=== PATIENT | male | born 1945 | race Caucasian/White ===

== ENCOUNTER 2017-03-15 19:35 | Observation (INO) | payer BC, MEDICARE ==
[~2017-03-15] VITALS: Ht 180.3 cm; Wt 89.6 kg
[~2017-03-15 19:35] MED LIST: ACTOS30 MG PO; AEROECLIPSE NEB1 DEV; ALBUTEROL2 PUFFS/17 IN; ANTIVERT GENERI25 MG PO; ASPIRIN EC81 MG PO; CARVEDILOL 1212.5 MG PO; CARVEDILOL6.25 MG PO; CHEWABLE ASPIRI81 MG PO; CLOPIDOGREL75 MG PO; COREG 6.25MG6.25 MG PO; DILTIAZEM ER 1120 MG PO; DILTIAZEM ER 3300 MG PO; DULERA1 ARO IH; HYCODAN 5MG. TAB5 MG PO; IMDUR 60MG. TAB60 MG PO; IPRATROPIUM BROM3 M1 IH; K + POTASSIUM20 MEQ PO; K-DUR 20MEQ TA20 MEQ PO; LASIX 20MG. TAB20 MG PO; LIPITOR10 MG PO; LORTAB 5/500 501 TAB PO; LOTREL 10 MG-201 CAP PO; METFORMIN 500M500 MG PO; METFORMIN HCL1000 MG PO; METFORMIN1000 MG PO; METRONIDAZOLE500 MG PO; MICRO-K 1010 MEQ PO; MUCINEX ER600 MG PO; NICOTINE PATCH;21 MG TD; OMEPRAZOLE DR20 MG PO; PHENERGAN 25MG.25 M1 PO; POTASSIUM CHLO10 ME3 PO; SYMBICORT1 AER IH; TOPAMAX 25 MG T25 MG PO; ZITHROMAX 250M250 MG PO
[2017-03-15 19:42] VITALS: BP 146/92
[2017-03-15 19:48] LABS: URINE BLOOD NEGATIVE (NEG)
[2017-03-15 19:51] LABS: URINE BILIRUBIN - DIPSTICK 1+ (NEG)
[2017-03-15] MEDS ORDERED: LEVOFLOXACIN 5500 M1 PO (19:51)
[2017-03-15 20:00] LABS: LYMPH # 1.7 K/mm3 (0.7-4.5); LYMPH % 21.4 % (10-50)
[2017-03-15 20:05] LABS: HEMOGLOBIN 16.7 g/dL (14.1-18.0)
--- OUTSIDE RECORDS SUMMARY | 2017-03-15 20:10 | External Medical Summary Rpt ---
Author Author , Organization [employer] Address Unknown Phone Unavailable Purpose Continuity of Care Document - through 2016
--- OUTSIDE RECORDS SUMMARY | 2017-03-15 20:10 | External Medical Summary Rpt ---
Author Author [employer] Organization [employer] Address Unknown Phone Unavailable Purpose Continuity of Care Document - through 2016
--- OUTSIDE RECORDS SUMMARY | 2017-03-15 20:10 | External Medical Summary Rpt ---
Author Author ROSE Muniz, [employer] Organization [employer] Address Unknown Phone Unavailable
[2017-03-15 20:23] LABS: BUN 17 mg/dL (7-18); GFR (ESTIMATED) 54 ML/MIN (>60)
--- NOTE | 2017-03-15 20:27 | Emergency Room Report ---
History of Present Illness Time Seen by 2007 Presenting Problem in Triage Pt arrived:Walked Presenting Problem:dizziness, nausea/vomiting, right abdomen and flank pain. pt has hida scan scheduled for tomorrow. Onset of symptoms date/time:/ or onset unknown for:MEDICAL HX UNKNOWN Treatment Prior to Arrival: AQUARIST Provided by: Sepsis Risk Assessment: Temp: 97.6 B/P: 146/92 MAP: 110 Pulse: 84 Resp: 20 Recent fever? N Clinical Suspician of Infection? N Mental Status: 1 - Regular (Normal Baseline) Sepsis Risk:Low Sepsis Risk Have you (or family members/close friends) recently traveled outside the [place]? N If Yes, where/when: Have you had exposure to infectious disease within the past month? TB? Other? Specify: Source patient, RN notes reviewed, family, RN/MD Exam Limitations no limitations Comment This is a 72-year-old gentleman arriving to the emergency room together with his daughter, complaining with RIGHT upper quadrant abdominal pain , since 10:30 PM, associated with multiple episodes of nausea or vomiting. Patient has eaten a greasy meal earlier in the afternoon, probably triggering current episode. He has been having RIGHT upper quadrant abdominal pain, off-and -on, for the past 2 weeks. Patient has seen Dr. Diaz, in the office, who has previously obtained a gallbladder ultrasound, which showed no gallstones. He is scheduled to have a HIDA scan tomorrow, at this facility. Patient denies any recent travel or exposure to sick contacts otherwise. ALLERGIES Coded Allergies: No Known Allergies (03/15/17) Home Medications Active Scripts CLOPIDOGREL BISULFATE (Clopidogrel 75MG) 75 MG PO DAILY #30 Ref 6 Prov: 12/12/11 Guaifenesin (Mucinex) 1,200 MG PO BID #60 Ref 5 Prov: 01/16/17 NEBULIZER (Aeroeclipse II Nebulizer) 1 EACH NA UD #1 Prov: 01/16/17 ALBUTEROL-IPRATROPIUM (Iprat-Albut 0.5-3(2.5) MG/3 Ml) 3 ML IH BIDP PRN COPD #60 NEB Ref 4 Prov: 01/16/17 Carvedilol (Carvedilol 12.5MG) 12.5 MG PO BID #60 Ref 2 Prov: 12/31/11 Reported Medications ASPIRIN ENTERIC COATED (Aspirin EC) 81 MG PO DAILY Furosemide (Lasix 20MG) 20 MG PO DAILY MOMETASONE/FORMOTEROL (Dulera 100 Mcg/5 Mcg Inhaler) 1 PUFF IH BID Insulin Glargine,Hum.rec.anlog (Basaglar Kwikpen U-100) 12 SQ QHS ISOSORBIDE MONONITRATE (Isosorbide Mononitrate ER) 120 MG PO QHS Atorvastatin Calcium (Lipitor 10MG) 20 MG PO QHS Amlodipine Besylate/Benazepr (Lotrel 10 Mg-20 Mg) 1 CAP PO QHS Omeprazole (Omeprazole Dr) 40 MG PO DAILY Levofloxacin (Levofloxacin 500MG TAB) 500 MG PO DAILY #10 History Medical History General CAD? Yes Angina: No HI: No Hypertension? Yes Hyperlipidemia? Yes CHF? No DVT? No PE? No COPD? Yes Asthma? No Anemia? No GERD? Yes Gastric ulcers? No GI Bleed? No Hernia? No Thyroid Problems? No Hypothyroidism? No CVA? No Seizures? No Diabetes? Yes Insulin Dependent: Yes Insulin Pump: No Home FSBS? Yes Renal Insuffiency? No End Stage Renal Disease? No UTI? No Stones? No BPH? No GB Disease: No Nephritic Syndrome? No Asplenia? No Hepatitis? No Sickle Cell Disease? No Arthritis? Yes Migraines? No Cataracts? No Glaucoma? No MRSA? No HIV? No TB? No Anxiety? No Depression? No Cancer? No More? No Immunization Hx DT/Tetanus 5-10 Years Ago Flu 2015-17FSN Pneumonia Received In Past Surgical Hx Previous Surgery?Y Appendix BUNIONECTOMY CARDIAC STENT Family History Family Hx Diabetes No CAD Yes Hypertension Yes Hyperlipidemia No Cancer Yes TB No Social History Smoking Hx Smoker: Current Every Day Smoker Tobacco: Yes Type Cigarettes Packs/day 1 1/2 - 2 Packs Alcohol Alcohol: No Review of Systems All Other Systems Reviewed and Negative Gastrointestinal see HPI, abdominal pain, denies diarrhea, nausea, vomiting Physical Exam Vital Signs Vital Signs Date Time Temp Pulse Resp B/P Pulse O2 O2 Flow FiO2 Ox Delivery Rate 03/15 2207 98.7 85 147/83 93 ROOM AIR 03/15 2155 97.6 45 142/78 94 03/15 2148 45 20 142/78 94 03/15 2112 68 20 130/78 94 03/15 1942 97.6 84 20 146/92 98 General Appearance normal appearance, WD/WN, moderate distress Neck normal inspection, non-tender, supple, full range of motion Respiratory Status Yes: trachea midline, chest symmetrical, non tender chest. No: respiratory distress. Lung Sounds bilateral: normal breath sounds, lungs clear. 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 No Comment Patient continues to remain symptomatic, although medically stable. He has had additional episodes of nausea and vomiting, as well as recurrent abdominal pain, despite the IV hydration, IV pain medications, IV antiemetics. Decision made to hospitalize patient for observation, at this time. 21:30-case discussed with Dr. Cronin, covering for Dr. Diaz, advised of patient's presentation, findings, vital signs, ED course. Dr. Cronin agreeable with admission, plan is to keep patient nothing by mouth, and conducted the HIDA scan in the morning. Care transferred to Dr. Cronin at this time. I will write temporary bridge admission orders, per hospital protocol. Upon patient's arrival to the floor, deputy united [place] marshal will contact Dr. Cronin in order to obtain full inpatient admission orders. Results/Orders Laboratory Tests 03/15/171944: Sodium 140, Potassium 3.4 L, Chloride 103, Carbon Dioxide 27, BUN 17, Creatinine 1.3, Estimated Creat Clear 66, Estimated GFR (MDRD) 54, Glucose 138 H, Calcium 7.7 L, Total Bilirubin 0.6, AST 16, ALT 27, Alkaline Phosphatase 63, Creatine Kinase 56, CK-MB (CK-2) Rel Index 2.3, CK and CKMB Interp 1.3, Troponin I < 0.02, Total Protein 7.6, Albumin 3.5, Globulin 4.1 H, Albumin/Globulin Ratio 0.9 L, WBC 7.9, RBC 5.22, Hgb 16.7, Hct 50.7, MCV 97.2, RDW 13.3, Plt Count 267, MPV 6.0 L, Gran % 74.3, Gran # 5.8, Lymphocytes % 21.4, Monocytes % 3.7, Eosinophils % 0.3, Basophils % 0.3, Lymphocytes # 1.7, Monocytes # 0.3, Eosinophils # 0.0, Basophils # 0.0, PUBS MCHC 32.8, MCH 31.9 H, Urine Color DK YELLOW, Urine Appearance CLEAR, Urine pH 5.5, Ur Specific [place] 1.025, Urine Protein NEGATIVE, Urine Ketones NEGATIVE, Urine Blood NEGATIVE, Urine Nitrate NEGATIVE, Urine Bilirubin 1+ H, Urine Urobilinogen 0.2, Ur Leukocyte Esterase NEGATIVE, Urine WBC 5-10, Urine Bacteria 1+, Hyaline Casts OCC, Urine Mucus 3+, Urine Glucose NEGATIVE Current Medication Orders Sig/Danelle Start time Last Medication Dose Route Stop Time Status Admin Morphine Sulfate 4 MG ONCE ONE 03/15 2145 DC IV 03/15 2146 Morphine Sulfate 4 MG Q4HP PRN 03/15 2145 UNV IV Ondansetron HCl 4 MG Q6HP PRN 03/15 2145 UNV IV Promethazine HCl 12.5 MG Q4HP PRN 03/15 2145 UNV IV Sodium Chloride 25 ML PRN PRN 03/15 2145 UNV IV Sodium Chloride 1,000 ML .Q8H 03/15 2145 UNV 03/15 IV 2258 Ondansetron HCl 4 MG ONCE ONE 03/15 2130 DC 03/15 IV 03/15 Ondansetron HCl 0 .STK-MED ONE 03/15 2130 DC .ROUTE Sodium Chloride 10 ML PRN PRN 03/15 2000 AC IV 03/16 1955 Orders Procedure Date/time Status DIET-NOTHING BY MOUTH 03/16 B Active NUC HEPATOBILIARY (CCK) 03/16 800 Active Decision to admit 03/[address] ABD/PELVIS REQ 03/15 2001 Complete IV SALINE LOCK 03/15 1955 Active ELECTROCARDIOGRAM REQUEST 03/15 1952 Active COMPLETE METABOLIC PANEL 03/15 1952 Complete CBC WITH AUTO DIFF 03/15 1952 Complete CARDIAC ENZYMES 03/15 1952 Complete URINALYSIS/COMPLETE 03/15 1941 Complete ADMIT PATIENT 03/15 UNK Active 12 LEAD EKG-GORDY (INITIAL) 03/15 UNK Active VITAL SIGNS 03/15 UNK Active RN DOCUMENTATION SPECIALIST 03/15 UNK Active POM NURSE SILAS HOSE ORDER 03/15 UNK Active CODE STATUS 03/15 UNK Active PATIENT ACTIVITY ORDER 03/15 UNK Active CM/EKG CM/EKG 1 Monitor Rhythm Normal Sinus Rhythm Rate 85 Ectopy No Comments No acute ischemic changes EKG rate, NSR, rhythm, no evid. of ischemic chgs, no ectopy, normal QRS, normal [place], no EKG for comparison, non-spec. ST/Twave chgs, ST elevation, ST depression, LBBB, RBBB, ectopy, abnormal Q waves CM/EKG 2 Monitor Rhythm Normal Sinus Rhythm Rate 78 Ectopy No Comments No acute ischemic changes EKG rate, NSR, rhythm, no evid. of ischemic chgs, no ectopy, normal QRS, normal [place], no EKG for comparison, non-spec. ST/Twave chgs, ST elevation, ST depression, LBBB, RBBB, ectopy, abnormal Q waves XRAY/CT/US XRAY/CT/US CT abdomen, pelvis CT interpretation by discussed w/radiologist CT Results see radiologist's report Departure Departure Time of Disposition 2129 Disposition Still a Patient Clinical Impression Primary Impression: Intractable nausea and vomiting Qualifiers: Vomiting type: unspecified Qualified Code: R11.2 - Nausea with vomiting, unspecified Secondary Impressions: RUQ abdominal pain Condition STABLE Referrals Nicky Diaz MD (Family) ED Critical Care Critical Care No at 0614
--- NOTE | 2017-03-15 20:38 | RADIOLOGY REPORT PS360 ---
CHEST(2 VIEWS-NOT PORTABLE) COMPARISON: PA and lateral chest 01/14/2017 HISTORY: Generalized weakness TECHNIQUE: PA and lateral chest FINDINGS: The lung juarez are well expanded and appear clear of infiltrate. Cardiac size is normal and the vascularity is normal and is no pleural fluid. There are mild degenerative changes of both shoulders. IMPRESSION: Nonacute chest findings
--- NOTE | 2017-03-15 20:45 | RADIOLOGY REPORT PS360 ---
CT ABD PELVIS W/O CONTRAST COMPARISON: CT scan the abdomen 12/27/2011 HISTORY: Nausea vomiting and diarrhea for 2 weeks TECHNIQUE: Multiaxial scans obtained from the hemidiaphragms the pelvic floor and were performed without IV or oral contrast. Sagittal and coronal reformats were evaluated as well. FINDINGS: Scans of the lower chest show show clear lung juarez. There is mild generalized cardio megaly. The liver spleen stomach pancreas and gallbladder appear normal. There is a hypodense lesion of the right adrenal gland likely a small cyst or adenoma in view of the CT number. The left adrenal gland is normal. The kidneys are normal in size and there are no calculi and is no obstructive uropathy of either kidney. Small bowel is normal. I do not definitely identify the appendix but no pericecal inflammatory changes. There is moderate stool in the ascending and transverse and descending colon. There is mild diverticulosis of the sigmoid colon with no evidence of diverticulitis. The urinary bladder is partially decompressed, the prostate is normal. There is a small right inguinal hernia containing fat only. IMPRESSION: Mild diverticulosis of sigmoid colon without diverticulitis, no other significant abnormality noted.
[2017-03-15 22:07] VITALS: BP 147/83
[2017-03-15 22:19] VITALS: BP 147/83
[2017-03-15] MEDS ORDERED: BASAGLAR K100 UNIT/1 SQ (22:49)
[2017-03-16 04:39] VITALS: BP 138/70
[2017-03-16 06:53] LABS: LYMPH # 2.1 K/mm3 (0.7-4.5); LYMPH % 33.5 % (10-50)
[2017-03-16 07:00] LABS: HEMOGLOBIN 14.6 g/dL (14.1-18.0)
[2017-03-16 08:00] VITALS: BP 107/69
[2017-03-16 09:00] VITALS: BP 128/68
--- NOTE | 2017-03-16 09:10 | PHARMACY CLINIC NOTE ---
Patient Demographics Patient Demographics Admission date: 03/15/17 Date: 03/16/17 Time: 09 Allergies Coded Allergies: No Known Allergies (03/15/17) HEIGHT- FT: 5 IN: 11.00 K.557 VTE General Information Labs: Laboratory Tests 03/16 1945 Hematology Hgb (14.1 - 18.0 g/dL) 14.6 16.7 Hct (42.0 - 52.0 %) 45.5 50.7 Plt Count (142 - 424 K/mm3) 219 267 Disclaimer The following section includes nursing documentation that has been pulled in for pharmacy review. Patient's VTE score: 3 Patient's VTE Risk: LOW RISK Clinical trial participant? No VTE prophylaxis NQF [id number] VTE prophylaxis ordered? Yes Type of prophylaxis/treatment: SILAS at 0909
--- NOTE | 2017-03-16 09:39 | HISTORY AND PHYSICAL REPORT ---
History and Physical (FCA) Date of admission: 03/15/17 Chief complaint: abdominal pain with vomiting History: History of Present Illness: Mr. Faustin is a 72 year old male with a history of Type2 DM, CAD, and hyperlipidemia who presented to [facility] ER yesterday after experiencing intractable vomiting associated with 2 weeks of abdominal pain. Patient states he has been unable to eat for 2 weeks with about a 16# weight loss. The vomiting started yesterday; bowels have been moving as usual. US had been scheduled for today on an OP basis. Evaluation in the ER revealed a normal CT of the abdomen. He received pain and antinausea meds as well as IV fluids without improvement. Thus he was admitted. This AM he still does not feel very well. He is NPO for the US. He continues to be nauseated but is not vomiting. His abdomen is sore. Past Medical History: Medical History: CAD? Yes Angina: No MT: No Hypertension? Yes Hyperlipidemia? Yes CHF? No DVT? No PE? No COPD? Yes Asthma? No Anemia? No GERD? Yes Gastric ulcers? No GI Bleed? No Hernia? No Thyroid Problems? No Hypothyroidism? No CVA? No Seizures? No Diabetes? Yes Insulin Dependent: Yes Insulin Pump: No Home FSBS? Yes Renal Insuffiency? No UTI? No Stones? No BPH? No GB Disease: No Nephritic Syndrome? No Asplenia? No Hepatitis? No Sickle Cell Disease? No Arthritis? Yes Migraines? No Cataracts? No Glaucoma? No MRSA? No HIV? No TB? No Anxiety? No Depression? No Cancer? No More? No Surgical history: Previous Surgery?Y Appendix BUNIONECTOMY CARDIAC STENT Medications: Active Scripts CLOPIDOGREL BISULFATE (Clopidogrel 75MG) 75 MG PO DAILY #30 Ref 6 Prov: 12/12/11 NEBULIZER (Aeroeclipse II Nebulizer) 1 EACH NA UD #1 Prov: 01/16/17 Carvedilol (Carvedilol 12.5MG) 12.5 MG PO BID #60 Ref 2 Prov: 12/31/11 Discontinued Scripts Guaifenesin (Mucinex) 1,200 MG PO BID #60 Ref 5 Prov: 01/16/17 DC: 03/16/17 1212 ALBUTEROL-IPRATROPIUM (Iprat-Albut 0.5-3(2.5) MG/3 Ml) 3 ML IH BIDP PRN COPD #60 NEB Ref 4 Prov: 01/16/17 DC: 03/16/17 1212 Reported Medications ISOSORBIDE MONONITRATE (Isosorbide Mononitrate ER) 120 MG PO QHS Topiramate (Topamax) 50 MG PO BID ASPIRIN ENTERIC COATED (Aspirin EC) 81 MG PO DAILY Furosemide (Lasix 20MG) 20 MG PO DAILY MOMETASONE/FORMOTEROL (Dulera 100 Mcg/5 Mcg Inhaler) 1 PUFF IH BID Insulin Glargine,Hum.rec.anlog (Basaglar Kwikpen U-100) 12 SQ QHS Atorvastatin Calcium (Lipitor 10MG) 20 MG PO QHS Amlodipine Besylate/Benazepr (Lotrel 10 Mg-20 Mg) 1 CAP PO QHS Omeprazole (Omeprazole Dr) 40 MG PO DAILY Levofloxacin (Levofloxacin 500MG TAB) 500 MG PO DAILY #10 Allergies: Coded Allergies: No Known Allergies (03/15/17) Family History: Family history: Postive for: CAD, HTN. Social History: Smoking Hx Tobacco: Yes Smoker: Current Every Day Smoker Type: Cigarettes Packs/day: 1 1/2 - 2 Packs Are you exposed to second hand Yes Alcohol: Alcohol: No Hx of Drug Use: Drug Use? No Review of Systems: ENT No: mouth pain, sore throat. Cardiovascular No: chest pain, edema, palpitations. Respiratory Positive for: productive cough (sputum). No: shortness of air. GI Positive for: abdominal pain, anorexia, nausea, vomitting. No: GERD, constipation, diarrhea, hematemeis, hematochezia, melena. (male) No: hematuria. Musculoskeletal No: joint pain. Physical Exam: Vital signs: 1ST Vital Signs Result Date Time Pulse Ox 98 03/15 1942 B/P 146/92 03/15 1942 Temp 97.6 03/15 1942 Pulse 84 03/15 1942 Resp 20 03/15 1942 O2 Delivery ROOM AIR 03/15 2207 Exam: General appearance: normal appearance, alert, no acute distress Eyes: anicteric, pupils reactive to light ENT: mucous membranes moist, pharynx normal Neck: no carotid bruit, supple, lymphadenopathy (absent), thyroid (normal) Cardiovascular: regular rate & rhythm Respiratory: coarse expiratory wheeze ABD: non-distended, soft, generaluized soreness with palpation Extremities: no peripheral edema, no calf tenderness Neuro: alert, oriented Lab data: Labs: Laboratory Tests 03/16/17 0625: Sodium 142, Potassium 3.5, Chloride 106, Carbon Dioxide 29, BUN 19 H, Creatinine 1.3, Estimated Creat Clear 64, Estimated GFR (MDRD) 54, Glucose 90, Calcium 7.2 L, Total Bilirubin 0.5, AST 14 L, ALT 23, Alkaline Phosphatase 51, Total Protein 6.3 L, Albumin 2.9 L, Globulin 3.4 H, Albumin/Globulin Ratio 0.9 L, Amylase 30, Lipase 79, WBC 6.3, RBC 4.68, Hgb 14.6, Hct 45.5, MCV 97.2, RDW 13.4, Plt Count 219, MPV 6.0 L, Gran % 61.0, Gran # 3.8, Lymphocytes % 33.5 , Monocytes % 5.0, Eosinophils % 0.3, Basophils % 0.2, Lymphocytes # 2.1, Monocytes # 0.3, Eosinophils # 0.0, Basophils # 0.0, PUBS MCHC 32.1, MCH 31.2 03/15/17 1945: Sodium 140, Potassium 3.4 L, Chloride 103, Carbon Dioxide 27, BUN 17, Creatinine 1.3, Estimated Creat Clear 66, Estimated GFR (MDRD) 54, Glucose 138 H, Calcium 7.7 L, Total Bilirubin 0.6, AST 16, ALT 27, Alkaline Phosphatase 63, Creatine Kinase 56, CK-MB (CK-2) Rel Index 2.3, CK and CKMB Interp 1.3, Troponin I < 0.02, Total Protein 7.6, Albumin 3.5, Globulin 4.1 H, Albumin/Globulin Ratio 0.9 L, WBC 7.9, RBC 5.22, Hgb 16.7, Hct 50.7, MCV 97.2, RDW 13.3, Plt Count 267, MPV 6.0 L, Gran % 74.3, Gran # 5.8, Lymphocytes % 21.4, Monocytes % 3.7, Eosinophils % 0.3, Basophils % 0.3, Lymphocytes # 1.7, Monocytes # 0.3, Eosinophils # 0.0, Basophils # 0.0, PUBS MCHC 32.8, MCH 31.9 H, Urine Color DK YELLOW, Urine Appearance CLEAR, Urine pH 5.5, Ur Specific [place] 1.025, Urine Protein NEGATIVE, Urine Ketones NEGATIVE, Urine Blood NEGATIVE, Urine Nitrate NEGATIVE, Urine Bilirubin 1+ H, Urine Urobilinogen 0.2, Ur Leukocyte Esterase NEGATIVE, Urine WBC 5-10, Urine Bacteria 1+, Hyaline Casts OCC, Urine Mucus 3+, Urine Glucose NEGATIVE Radiology results: Results: 03/15/17 CXR IMPRESSION: 1. Mild splenomegaly. 2. Otherwise negative CT abdomen and pelvis with no acute intra-abdominal or pelvic pathology apparent 3. No significant change from 05/23/2014 03/15/17 CT of abdomen/pelvis IMPRESSION: Mild diverticulosis of sigmoid colon without diverticulitis, no other significant abnormality noted. Diagnosis(es): 1. RUQ abdominal pain 2. Intractable nausea and vomiting 3. Bronchitis 4. Diabetes type 2, controlled Plan: FOR HIDA scan this AM; nausea and pain control; IVF (Ana Cristina Ervin APRN) Diagnosis(es): 1. RUQ abdominal pain 2. Intractable nausea and vomiting 3. Bronchitis 4. Diabetes type 2, controlled 5. History of ASCVD Plan: Patient seen and examined this morning. He has had no vomiting since arriving to the ER last night. He still complains of some right upper quadrant pain. He has had no change in his bowels. He is scheduled actually for a HIDA scan. He previously had an essentially normal gallbladder ultrasound as an outpatient. We will proceed accordingly. (Lili Cronin MD) at 1214 at 2011
[2017-03-16] MEDS ORDERED: TOPAMAX50 MG PO (12:13)
--- NOTE | 2017-03-16 13:52 | RADIOLOGY REPORT PS360 ---
NUC HEPATOBILIARY (CCK) HISTORY: RUQ abdominal pain, nausea, vomiting ORDERING PHYSICIAN: Lili Cronin MD PATIENT AGE: 72 years COMPARISON: None DOSE: 8.8 mCi technetium Choletec. 1.9 mcg of CCK. No pain was reported with CCK infusion FINDINGS: Homogeneous activity is present within the hepatic parenchyma. Activity is present in the gallbladder by 10 minutes. Activity is present in the small bowel by 10 minutes. The gallbladder ejection fraction is calculated to be 92%, within normal limits The patient did not report pain or other symptoms during CCK infusion. IMPRESSION: Unremarkable hepatobiliary scan and gallbladder ejection fraction. No evidence of common or cystic duct obstruction with normal gallbladder ejection fraction
[2017-03-16 16:00] VITALS: BP 123/72
[2017-03-16 20:20] VITALS: BP 128/68
[2017-03-17 04:35] VITALS: BP 90/54
[2017-03-17 08:30] VITALS: BP 111/65
[2017-03-17 08:31] VITALS: BP 90/54
--- NOTE | 2017-03-17 08:57 | ACUTE CARE PROGRESS NOTE (QUA) ---
Progress Notes Subjective Date 03/17/17 Time 0745 Note Feeling better; was able to eat breakfast this AM; denies nausea and has not vomited; normal stools; voiding QS Objective Findings Laboratory Tests 03/17/17 0633: POC Glucose 84 03/16/17 2131: POC Glucose 154 H 03/16/17 1704: POC Glucose 90 Vital Signs Date Time Temp Pulse Resp B/P Pulse O2 O2 Flow FiO2 Ox Delivery Rate 03/17 831 98.9 70 20 90/54 93 03/17 0830 97.7 81 18 111/65 92 ROOM AIR 03/17 0435 98.9 70 20 90/54 93 ROOM AIR 03/16 2140 97.5 73 20 128/68 94 03/16 2020 97.5 73 20 128/68 94 ROOM AIR 03/16 1600 98.0 76 20 123/72 95 ROOM AIR 03/16 0900 97.5 73 20 128/68 94 Current Medications Insulin Human [rDNA origin] 0 .STK-MED ONE SC (DC) Ondansetron HCl 0 .STK-MED ONE .ROUTE (DC) Isosorbide Mononitrate 120 MG QHS PO Fluticasone/Salmeterol 1 PUFFS Q12H6 IN Diagnostic Test (Pha) 1 EACH W/MEALS&HS FS Insulin Human [rDNA origin] SEE ADMIN CRITERIA FOR LOW INTENSITY SS W/MEALS&HS SC Sodium Chloride 10 ML PRN PRN IV Pantoprazole Sodium 40 MG BID IV Carvedilol 12.5 MG BID PO Miscellaneous 1 DOSE ONCE ONE IV (DC) Sodium Chloride 10 ML ONCE ONE IV (DC) Sodium Chloride 10 ML ONCE ONE IV (DC) Sincalide 1.9 MCG ONCE ONE IV (DC) Sodium Chloride 50 ML Morphine Sulfate 4 MG Q4HP PRN IV Ondansetron HCl 4 MG Q6HP PRN IV Promethazine HCl 12.5 MG Q4HP PRN IV Sodium Chloride 25 ML PRN PRN IV Sodium Chloride 1,000 ML .Q8H IV Sodium Chloride 10 ML PRN PRN IV (DC) 03/16 1500 03/16 2300 03/17 0700 Intake Total 0 900 703 Output Total Balance 0 900 703 Intake, IV 703 Intake, Oral 0 900 Patient 197 lb Weight Last VS-Temp:98.9 B/P:90/54 Pulse:70 Resp:20 SaO2:93 ROOM AIR Last weight lbs:197 oz:7 K.557 Method:Bed Scales Exam General appearance: alert, active, no acute distress, sitting on bedside Cardiovascular: regular rate & rhythm Respiratory: clear to auscultation (bilat anterior and posterior) ABD: non-distended, soft, bowel sounds present, point tenderness RLQ Extremities: no peripheral edema, no calf tenderness Neuro: alert, oriented Assessment/Plan Problem List 1. RUQ abdominal pain 2. Intractable nausea and vomiting 3. Bronchitis 4. Diabetes type 2, controlled 5. History of ASCVD Plan: Will discharge to home with GI referral This inpt stay is expected to cross 2 MNs from start of care No (Ana Cristina Ervin APRN) Subjective Date 03/17/17 Time 0835 Assessment/Plan Problem List 1. RUQ abdominal pain 2. Intractable nausea and vomiting 3. Bronchitis 4. Diabetes type 2, controlled 5. History of ASCVD Plan: Pt seen and examined. Clinically improved but stiil no definitive explanation for his symptoms. He is stable for discharge and will arrange outpt GI f/u. (Lili Cronin MD) at 0856 at 1423
[2017-03-17] MEDS ORDERED: ZOFRAN4 MG PO (08:59)
== END 2017-03-17 09:55 | disposition home or self-care (01) ==
LOC: ER 19:35 → 2ND 21:29
PROVIDERS: Emergency Medicine; Family Medicine
DX: R11.2 Nausea with vomiting, unspecified (principal); R10.11 Right upper quadrant pain; J40 Bronchitis, not specified as acute or chronic; E11.9 Type 2 diabetes mellitus without complications
CPT/HCPCS: A9537; G0378; J2405; J2805

== ENCOUNTER 2017-03-22 21:57 | Observation (INO) | payer BC, MEDICARE ==
[~2017-03-22] VITALS: Ht 180.3 cm; Wt 85.1 kg
[~2017-03-22 21:57] MED LIST changes: +ATORVASTATIN CA20 MG PO; +BASAGLAR K100 UNIT/1 SQ; +LEVOFLOXACIN 5500 M1 PO; -LIPITOR10 MG PO; -OMEPRAZOLE DR20 MG PO; +OMEPRAZOLE40 MG PO; +TOPAMAX50 MG PO; +ZOFRAN4 MG PO
[2017-03-22 21:58] VITALS: BP 153/99
--- OUTSIDE RECORDS SUMMARY | 2017-03-22 22:06 | External Medical Summary Rpt ---
Author Author , Organization [employer] Address Unknown Phone Unavailable Purpose Continuity of Care Document - through 2016 Problems Code Diagnosis DOS Provider Status R10.11 RIGHT UPPER QUADRANT PAIN R11.2 NAUSEA WITH VOMITING, UNSPECIFIED
[2017-03-22] MEDS ORDERED: GLIMEPIRIDE 4MG4 MG PO (22:07)
--- OUTSIDE RECORDS SUMMARY | 2017-03-22 22:08 | External Medical Summary Rpt ---
Demographics Preferred Language Belarusian Marital Status Unknown Congregation Affiliation Unknown Race Unknown Ethnic Group Unknown Author Author , Organization [employer] Address Unknown Phone Unavailable Purpose Continuity of Care Document - through 2016 Immunization Unable to retrieve immunization data due to connection failure with Immunization Registry. Please try again later.
--- OUTSIDE RECORDS SUMMARY | 2017-03-22 22:08 | External Medical Summary Rpt ---
Demographics Preferred Language Tamaz[place] Marital Status Unknown Alevism Affiliation Unknown Race Unknown Ethnic Group Unknown Author Author , Organization [employer] Address Unknown Phone Unavailable Purpose Continuity of Care Document - through 2016 Immunization Unable to retrieve immunization data due to connection failure with Immunization Registry. Please try again later.
[2017-03-22 22:40] LABS: HEMOGLOBIN 14.7 g/dL (14.1-18.0); LYMPH # 1.9 K/mm3 (0.7-4.5)
--- NOTE | 2017-03-22 22:47 | Emergency Room Report ---
History of Present Illness Time Seen by 2204 Presenting Problem in Triage Pt arrived:Wheelchair Presenting Problem:PT C/O LEFT ANTERIOR CHEST PAIN THAT "EARLIER TODAY WAS LIKE AN ACHE IN MY LEFT ARM, BUT IT'S NOT THAT BAD NOW." PT DESCRIBES CHEST PAIN SHARP PAIN THAT'S CONSTANT, PT RPTS PAIN STARTED AT 1100 THIS MORNING WHEN HE WAS AT HIS HOME DOING HIS NORMAL ACTIVITIES. PT ALSO C/O SOB AND FEELING CLAMMY TODAY. PT WAS RECENTLY ADMITTED TO [facility] 5 DAYS AGO, WAS ADMITTED FOR ABDOMINAL PAIN AND VOMITING. PT DID HAVE A HIDASCAN DONE ON THURSDAY, DR MARY TOLD THE SCAN WAS OK, BUT "DOES NOT EXPLAIN THE ABDOMINAL PAIN THAT HE'S HAD FOR A MONTH AND HE HASN'T BEEN ABLE TO EAT SO THEY REFERRED HIM TO A GASTROLOGIST. 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 N Clinical Suspician of Infection? N Mental Status: 1 - Regular (Normal Baseline) Sepsis Risk:Low Sepsis Risk Have you (or family members/close friends) recently traveled outside the [place]? N If Yes, where/when: Have you had exposure to infectious disease within the past month? N TB? Other? Specify: Source patient, RN notes reviewed, family, old records Exam Limitations no limitations Comment wm who has had ant chest pain with rad to lt upper ext and has not felt well - he was recently admitted with rt upper abd pain but reports this pain feels different Cardiac Chest Pain Chest pain indicative of cardiac Yes Timing/Duration 4-6 hours, intermittent Severity/Quality moderate, sharp Location central Chest Pain Radiation arm(s) Activities at Onset light activity Nitro Today/Relief 0.4 mg x 1, provided at home, mild relief Aspirin Treatment Today 325 mg x 1, provided by ED Beta loyd treatment today no beta loyd taken Cardiac risk factors + family history Prior Workup/Intervention stress test Timing/Duration this afternoon Severity moderate ALLERGIES Coded Allergies: No Known Allergies (03/15/17) Home Medications Active Scripts CLOPIDOGREL BISULFATE (Clopidogrel 75MG) 75 MG PO DAILY #30 Ref 6 Prov: 12/12/11 NEBULIZER (Aeroeclipse II Nebulizer) 1 EACH NA UD #1 Prov: 01/16/17 ONDANSETRON HCL (Zofran 4MG Tab) 4 MG PO Q6HP PRN NAUSEA AND VOMITING #20 TAB Prov: 03/17/17 Carvedilol (Carvedilol 12.5MG) 12.5 MG PO BID #60 Ref 2 Prov: 12/31/11 Discontinued Scripts Guaifenesin (Mucinex) 1,200 MG PO BID #60 Ref 5 Prov: 01/16/17 DC: 03/16/17 1212 ALBUTEROL-IPRATROPIUM (Iprat-Albut 0.5-3(2.5) MG/3 Ml) 3 ML IH BIDP PRN COPD #60 NEB Ref 4 Prov: 01/16/17 DC: 03/16/17 1212 Reported Medications ISOSORBIDE MONONITRATE (Isosorbide Mononitrate ER) 120 MG PO QHS Topiramate (Topamax) 50 MG PO BID ASPIRIN ENTERIC COATED (Aspirin EC) 81 MG PO DAILY Furosemide (Lasix 20MG) 20 MG PO DAILY MOMETASONE/FORMOTEROL (Dulera 100 Mcg/5 Mcg Inhaler) 1 PUFF IH BID Insulin Glargine,Hum.rec.anlog (Basaglar Kwikpen U-100) 12 SQ QHS Atorvastatin Calcium (Lipitor 10MG) 20 MG PO QHS Amlodipine Besylate/Benazepr (Lotrel 10 Mg-20 Mg) 1 CAP PO QHS Omeprazole (Omeprazole Dr) 40 MG PO DAILY Glimepiride (Glimepiride 4MG Tablet) 4 MG PO DAILY #90 History Medical History General CAD? Yes Angina: Yes [place]: No Hypertension? Yes Hyperlipidemia? Yes CHF? Yes DVT? No PE? No COPD? Yes Asthma? No Anemia? No GERD? Yes Gastric ulcers? No GI Bleed? No Hernia? No Thyroid Problems? No Hypothyroidism? No CVA? No Seizures? No Diabetes? Yes Insulin Dependent: Yes Insulin Pump: No Home FSBS? Yes Renal Insuffiency? No End Stage Renal Disease? No UTI? No Stones? No BPH? No GB Disease: No Nephritic Syndrome? No Asplenia? No Hepatitis? No Sickle Cell Disease? No Arthritis? Yes Migraines? No Cataracts? No Glaucoma? No MRSA? No HIV? No TB? No Anxiety? No Depression? No Cancer? No More? No Immunization Hx DT/Tetanus 5-10 Years Ago Flu 2016-17FSN Pneumonia Received In Past Surgical Hx Previous Surgery?Y Appendix BUNIONECTOMY CARDIAC STENT Family History Family Hx Diabetes No CAD Yes Hypertension Yes Hyperlipidemia No Cancer Yes TB No Social History Smoking Hx Smoker: Current Every Day Smoker Tobacco: Yes Type Cigarettes Packs/day 1 1/2 - 2 Packs Alcohol Alcohol: No Drugs none Review of Systems All Other Systems Reviewed and Negative Constitutional denies fever Eyes denies drainage ENT denies: ear pain, epistaxis, throat pain. Respiratory denies cough, shortness of breath, denies wheezing Cardiovascular see HPI, chest pain, denies palpitations, denies syncope Gastrointestinal denies abdominal pain, denies diarrhea, denies vomiting Genitourinary denies: dysuria, frequency, hesitancy, hematuria. Musculoskeletal denies back pain, denies joint pain, denies joint swelling, denies neck pain Skin denies rash Psychiatric/Neurological denies headache, denies seizure Physical Exam Vital Signs Vital Signs Date Time Temp Pulse Resp B/P Pulse O2 O2 Flow FiO2 Ox Delivery Rate 03/22 2323 98.7 87 18 118/67 93 03/22 2308 98.7 89 18 136/83 93 03/22 2255 18 03/22 2238 91 18 128/71 93 03/22 2215 98.7 92 20 145/78 93 03/22 2158 98.7 94 18 153/99 93 - WBC >12,000 or <4,000 or 10% bands? 2 or more SIRS Criteria Met? B/P:118/67 MAP:117 Creatinine >2.0? UA output<0.5ml/kg/hr for 2 hrs? Platelet count >100,000? Lactate >2.0mmol/1? INR >1.2 or PTT > than 60 sec? Evidence of Organ Dysfunction? Provider documented clinical suspician of infection? N Sepsis Criteria Count: 1 Sepsis Risk: Low Sepsis Risk General Appearance no apparent distress Eye Exam - bilateral eye PERRL, bilateral eye EOMI Ear, Nose, Throat normal ENT inspection Neck supple Respiratory Status No: respiratory distress. Lung Sounds bilateral: decreased breath sounds. 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 No Results/Orders Laboratory Tests 03/22/172227: Amylase 29, Lipase 86 03/22/172227: Sodium 138, Potassium 3.2 L, Chloride 104, Carbon Dioxide 28, BUN 12, Creatinine 1.2, Estimated Creat Clear 69, Estimated GFR (MDRD) 59, Glucose 133 H, Calcium 7.0 L, Total Bilirubin 0.7, AST 15, ALT 20, Alkaline Phosphatase 80, Creatine Kinase 73, CK-MB (CK-2) Rel Index 1.9, CK and CKMB Interp 1.4, Troponin I 0.15 H, Total Protein 7.1, Albumin 3.4, Globulin 3.7 H, Albumin/Globulin Ratio 0.9 L, WBC 7.3, RBC 4.63, Hgb 14.7, Hct 44.4, MCV 96.0, RDW 13.4, Plt Count 180, MPV 6.2 L, Gran % 65.9, Gran # 4.8, Lymphocytes % 26.0, Monocytes % 6.5, Eosinophils % 1.0, Basophils % 0.6, Lymphocytes # 1.9, Monocytes # 0.5, Eosinophils # 0.1, Basophils # 0.0, PUBS MCHC 33.1, MCH 31.8 H Current Medication Orders Sig/Danelle Start time Last Medication Dose Route Stop Time Status Admin Aspirin 243 MG ONCE ONE 03/22 2330 DC 03/22 PO 03/22 2331 2331 Aspirin 0 .STK-MED ONE 03/22 2329 DC .ROUTE Morphine Sulfate 4 MG ONCE ONE 03/220 DC 03/22 IV 03/22 2301 225 Nitroglycerin 1 IN ONCE ONE 03/22 2300 DC 03/22 TP 03/22 2301 225 Ondansetron HCl 4 MG ONCE ONE 03/22 2300 DC 03/22 IV 03/22 230 2257 Nitroglycerin 0 .STK-MED ONE 03/22 2252 DC .ROUTE Morphine Sulfate 0 .STK-MED ONE 03/22 2251 DC .ROUTE Ondansetron HCl 0 .STK-MED ONE 03/22 2251 DC .ROUTE Sodium Chloride 10 ML PRN PRN 03/22 2215 AC IV 03/23 2209 Orders Procedure Date/time Status LIPASE 03/22 224 Complete AMYLASE 03/22 2247 Complete ELECTROCARDIOGRAM REQUEST 03/22 2210 Active CHEST(2 VIEWS-NOT PORTABLE) 03/22 2210 Active IV SALINE LOCK 03/22 2210 Active CBC WITH AUTO DIFF 03/22 2210 Complete CARDIAC ENZYMES 03/22 2210 Complete CHEM 12 PROFILE 03/22 2210 Complete 12 LEAD EKG-MITUL (INITIAL) 03/22 UNK 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 ST/Twave chgs XRAY/CT/US XRAY/CT/US XRAY chest XR interpretation by reviewed by me Xray Results normal/NAD Departure Departure Time of Disposition 2346 Disposition Still a Patient Clinical Impression Primary Impression: Chest pain Qualifiers: Chest pain type: precordial pain Qualified Code: R07.2 - Precordial pain Condition STABLE Referrals Nicky Diaz MD (Family) discussed with dr mary ED Critical Care Critical Care No at 0289
[2017-03-22 23:52] VITALS: BP 118/67
[2017-03-23 00:30] VITALS: BP 118/74
[2017-03-23 04:30] VITALS: BP 105/68
--- NOTE | 2017-03-23 06:46 | RADIOLOGY REPORT PS360 ---
CHEST(2 VIEWS-NOT PORTABLE) Ordering Physician: Nicky Diaz MD Patient Age: 72 years: Male HISTORY: CHEST PAIN short of breath Prior MRI with stent placed smoker. COMPARISON. PA and lateral chest 03/15/2017 & 01/14/2017 also November 2011 and March 2010 TECHNIQUE: PA and lateral chest FINDINGS Today's studies in keeping with a 2009 exam overall. Also January 2017. There is some mild accentuation markings right right lung, infrahilar region but this appears similar to those prior studies without convincing pneumonia. . Findings most likely reflecting less optimal inspiration today. There is also some minimal linear density along the major fissure on lateral view which could reflect scant fluid along the fissure or atelectasis adjacent to it. . If respiratory symptoms progress consider follow-up to exclude No pleural effusion otherwise evident. No pneumothorax. Heart is normal in size monae and mediastinal structures unremarkable IMPRESSION: No discrete, no definitive pneumonia evident. Mild accentuation of markings at right lower chest is similar to previous studies Only noting some minor thickening along major fissure today, may reflect scant fluid or linear atelectasis, along course of the major fissure on right. No pleural fluid otherwise
--- NOTE | 2017-03-23 07:17 | PHARMACY CLINIC NOTE ---
Patient Demographics Patient Demographics Admission date: 03/23/17 Date: 03/23/17 Time: 07 Allergies Coded Allergies: No Known Allergies (03/15/17) HEIGHT- FT: 5 IN: 11.00 K.078 VTE General Information Labs: Laboratory Tests 03/22 2228 Hematology Hgb (14.1 - 18.0 g/dL) 14.7 Hct (42.0 - 52.0 %) 44.4 Plt Count (142 - 424 K/mm3) 180 Disclaimer The following section includes nursing documentation that has been pulled in for pharmacy review. Patient's VTE score: 4 Patient's VTE Risk: LOW RISK Clinical trial participant? No VTE prophylaxis [id number] VTE prophylaxis ordered? Yes Type of prophylaxis/treatment: SILAS at 0717
--- NOTE | 2017-03-23 08:20 | CONSULT NOTE ---
Standard Demographics Patient Demo Date of Consultation: 03/23/17 Referring Provider: Sonal Diaz MD Reason for Consultation: NSTEMI PRIMARY DIAGNOSIS: CHEST PAIN Problem list Problem list: 1. CAD A. History of coronary stent placed about 2003, Dr. Kamara 2. HTN 3. Hyperlipidemia 4. Tobacco use, >60 yrs A. Chronic obstructive pulmonary disease/asthma 5. DM, insulin requiring, treated for >20 yrs History of present illness: History of present illness: 72-year-old white male with known coronary disease, previous coronary stenting about 13 years ago, diabetes mellitus insulin requiring, hypertension and hyperlipidemia was admitted yesterday for substernal chest discomfort that was noted upon waking yesterday morning. Symptoms progressed to include discomfort into the LEFT shoulder and LEFT arm described as an aching sensation. Symptoms would get worse with movement or activity and improved with rest. Into the emergency department for evaluation he was given nitroglycerin and morphine with improvement in symptoms. Cardiac troponins have returned elevated 3. Cardiology consulted for evaluation and recommendations. Patient does note some mild substernal discomfort this morning but not as severe as yesterday. Electrocardiogram showed sinus rhythm without acute ST elevation. Patient was recently admitted last week for nausea vomiting abdominal pain. Workup included a HIDA scan that was negative. No etiology for his symptoms noted. Past Medical History: General: Hypertension Yes CVA No Seizures No TB No COPD Yes Asthma No Diabetes Yes Insulin Dependent Yes Insulin Pump No Angina Yes [place] No Hyperlipidemia Yes Urinary No Cancer No Rheumatic H.D. No Ulcers No MRSA No GB Disease No Other ACID REFLUX Past Surgical HX: Previous Surgery?Y Appendix BUNIONECTOMY CARDIAC STENT BILATERAL CATARACT SX VASECTOMY Allergies Coded Allergies: No Known Allergies (03/15/17) Home medications: Active Scripts CLOPIDOGREL BISULFATE (Clopidogrel 75MG) 75 MG PO DAILY #30 Ref 6 Prov: 12/12/11 NEBULIZER (Aeroeclipse II Nebulizer) 1 EACH NA UD #1 Prov: 01/16/17 ONDANSETRON HCL (Zofran 4MG Tab) 4 MG PO Q6HP PRN NAUSEA AND VOMITING #20 TAB Prov: 03/17/17 Carvedilol (Carvedilol 12.5MG) 12.5 MG PO BID #60 Ref 2 Prov: 12/31/11 Discontinued Scripts Guaifenesin (Mucinex) 1,200 MG PO BID #60 Ref 5 Prov: 01/16/17 DC: 03/16/17 1212 ALBUTEROL-IPRATROPIUM (Iprat-Albut 0.5-3(2.5) MG/3 Ml) 3 ML IH BIDP PRN COPD #60 NEB Ref 4 Prov: 01/16/17 DC: 03/16/17 1212 Reported Medications Topiramate (Topamax) 50 MG PO BID ATORVASTATIN CALCIUM (ATORVASTATIN 20MG) 20 MG PO QHS Omeprazole (Omeprazole 40MG) 40 MG PO DAILY ASPIRIN ENTERIC COATED (Aspirin EC) 81 MG PO DAILY Furosemide (Lasix 20MG) 20 MG PO DAILY MOMETASONE/FORMOTEROL (Dulera 100 Mcg/5 Mcg Inhaler) 2 PUFFS IH BID Insulin Glargine,Hum.rec.anlog (Basaglar Kwikpen U-100) 12 SQ QHS ISOSORBIDE MONONITRATE (IMDUR 30MG) 90 MG PO DAILY Amlodipine Besylate/Benazepr (Lotrel 10 Mg-20 Mg) 1 CAP PO QHS Glimepiride (Glimepiride 4MG Tablet) 4 MG PO DAILY #90 Immunization HX DT/Tetanus 5-10 Years Flu 2015-FSN Pneumonia RECEIVED IN PAST TB Test in last year No Family history Family HX Family Hx Insignificant No Diabetes No CAD Yes Hypertension Yes Hyperlipidemia No Cancer Yes TB No Social Hx: Smoking HX Tobacco Yes Type Cigarettes Packs/day < 1 PACK Are you/the child exposed to second-hand smoke: Yes Alcohol Alcohol: No Hx of Drug Use Drug Use? No Patien't marital status is Review of systems: Constitutional see HPI. Respiratory SOB with excertion. Cardiovascular see HPI, chest pain Gastrointestinal/Abdominal see HPI Genitourinary No: no symptoms reported. Musculoskeletal No: no symptoms reported. Neurological No: no symptoms reported. Exam: Admission Vital Signs: 1ST Vital Signs Result Date Time Pulse Ox 93 03/22 2158 B/P 153/99 03/22 2158 Temp 98.7 03/22 2158 Pulse 94 03/22 215 Resp 18 03/22 2158 O2 Delivery ROOM AIR 03/22 2352 Last Vital Signs: Vital Signs Result Date Time Pulse Ox 90 03/23 430 B/P 105/68 03/23 430 O2 Delivery ROOM AIR 03/23 430 Temp 98.9 03/23 430 Pulse 87 03/23 430 Resp 18 03/23 430 Exam General appearance: alert, awake, no acute distress Neck: no carotid bruit, no JVD Cardiovascular: regular rate & rhythm, no murmur Respiratory: clear to auscultation, good air movement ABD: soft, no tenderness Extremities: moves all, no peripheral edema Neuro: alert, intact, oriented, speech clear Laboratory data: Laboratory Tests 03/23/17 0610: Creatine Kinase 67, CK-MB (CK-2) Rel Index 2.8, CK and CKMB Interp 1.9, Troponin I 0.26 H 03/23/17 0300: Creatine Kinase 63, CK-MB (CK-2) Rel Index 2.4, CK and CKMB Interp 1.5, Troponin I 0.23 H 03/22/17 2228: Amylase 29, Lipase 86 03/22/17 2228: Sodium 138, Potassium 3.2 L, Chloride 104, Carbon Dioxide 28, BUN 12, Creatinine 1.2, Estimated Creat Clear 69, Estimated GFR (MDRD) 59, Glucose 133 H, Calcium 7.0 L, Total Bilirubin 0.7, AST 15, ALT 20, Alkaline Phosphatase 80, Creatine Kinase 73, CK-MB (CK-2) Rel Index 1.9, CK and CKMB Interp 1.4, Troponin I 0.15 H, Total Protein 7.1, Albumin 3.4, Globulin 3.7 H, Albumin/Globulin Ratio 0.9 L, WBC 7.3, RBC 4.63, Hgb 14.7, Hct 44.4, MCV 96.0, RDW 13.4, Plt Count 180, MPV 6.2 L, Gran % 65.9, Gran # 4.8, Lymphocytes % 26.0, Monocytes % 6.5, Eosinophils % 1.0, Basophils % 0.6, Lymphocytes # 1.9, Monocytes # 0.5, Eosinophils # 0.1, Basophils # 0.0, PUBS MCHC 33.1, MCH 31.8 H Plan: Assessment: 1. Non-STEMI 2. Known coronary artery disease 3. Hypertension 4. Hyperlipidemia 5. Diabetes mellitus, insulin requiring 6. Tobacco use, continued 7. Hypokalemia, will replace. Recommendations: 1. Discuss risks and benefits of proceeding with cardiac catheterization today. Patient agrees to proceed today. 2. Continue aspirin and Plavix which started been started. 3. Continue antihypertensives and statin therapy. 4. Will add low-dose MARC inhibitor. at 1231
[2017-03-23 09:10] VITALS: BP 120/76
--- NOTE | 2017-03-23 09:10 | HISTORY AND PHYSICAL REPORT ---
History and Physical ([facility]) Date of admission: 03/23/17 Chief complaint: chest pain History: History of Present Illness: History of present illness: 72-year-old white male with known coronary disease, previous coronary stenting about 13 years ago, diabetes mellitus insulin requiring, hypertension and hyperlipidemia was admitted yesterday for substernal chest discomfort that was noted upon waking yesterday morning. Symptoms progressed to include discomfort into the LEFT shoulder and LEFT arm described as an aching sensation. Symptoms would get worse with movement or activity and improved with rest. The pain was associated with SOB, nausea, diaphoresis, and skipped beats. Thus he presented to the ER. IN the ER he was given nitroglycerin and morphine with improvement in symptoms. Cardiac troponins returned elevated 3. Cardiology was consulted for evaluation and recommendations. This AM patient continues with some mild substernal discomfort but not as severe as yesterday. Electrocardiogram showed sinus rhythm without acute ST elevation. To note Patient was hospitalized last week for nausea, vomiting abdominal pain. Workup included a HIDA scan that was negative. He was to follow up with Gi next week. Past Medical History: Medical History: CAD? Yes Angina: Yes [place]: No Hypertension? Yes Hyperlipidemia? Yes CHF? Yes DVT? No PE? No COPD? Yes Asthma? No Anemia? No GERD? Yes Gastric ulcers? No GI Bleed? No Hernia? Yes Thyroid Problems? No Hypothyroidism? No CVA? No Seizures? No Diabetes? Yes Insulin Dependent: Yes Insulin Pump: No Home FSBS? Yes Renal Insuffiency? No UTI? No Stones? No BPH? No GB Disease: No Nephritic Syndrome? No Asplenia? No Hepatitis? No Sickle Cell Disease? No Arthritis? Yes Migraines? No Cataracts? Yes Glaucoma? No MRSA? No HIV? No TB? No Anxiety? No Depression? No Cancer? No More? No Additional hx: TOBACCO USE DISORDER Surgical history: Previous Surgery?Y Appendix BUNIONECTOMY CARDIAC STENT BILATERAL CATARACT SX VASECTOMY Medications: Active Scripts CLOPIDOGREL BISULFATE (Clopidogrel 75MG) 75 MG PO DAILY #30 Ref 6 Prov: 12/12/11 NEBULIZER (Aeroeclipse II Nebulizer) 1 EACH NA UD #1 Prov: 01/16/17 ONDANSETRON HCL (Zofran 4MG Tab) 4 MG PO Q6HP PRN NAUSEA AND VOMITING #20 TAB Prov: 03/17/17 Carvedilol (Carvedilol 12.5MG) 12.5 MG PO BID #60 Ref 2 Prov: 12/31/11 Discontinued Scripts Guaifenesin (Mucinex) 1,200 MG PO BID #60 Ref 5 Prov: 01/16/17 DC: 03/16/17 1212 ALBUTEROL-IPRATROPIUM (Iprat-Albut 0.5-3(2.5) MG/3 Ml) 3 ML IH BIDP PRN COPD #60 NEB Ref 4 Prov: 01/16/17 DC: 03/16/17 1212 Reported Medications ISOSORBIDE MONONITRATE (Isosorbide Mononitrate ER) 120 MG PO QHS Topiramate (Topamax) 50 MG PO BID ATORVASTATIN CALCIUM (ATORVASTATIN 20MG) 20 MG PO QHS ASPIRIN ENTERIC COATED (Aspirin EC) 81 MG PO DAILY Furosemide (Lasix 20MG) 20 MG PO DAILY MOMETASONE/FORMOTEROL (Dulera 100 Mcg/5 Mcg Inhaler) 1 PUFF IH BID Insulin Glargine,Hum.rec.anlog (Basaglar Kwikpen U-100) 12 SQ QHS Amlodipine Besylate/Benazepr (Lotrel 10 Mg-20 Mg) 1 CAP PO QHS Omeprazole (Omeprazole Dr) 40 MG PO DAILY Glimepiride (Glimepiride 4MG Tablet) 4 MG PO DAILY #90 Allergies: Coded Allergies: No Known Allergies (03/15/17) Family History: Family history: Postive for: CAD, HTN. Social History: Smoking Hx Tobacco: Yes Smoker: Current Every Day Smoker Type: Cigarettes Packs/day: < 1 Pack Are you exposed to second hand Yes Alcohol: Alcohol: No Hx of Drug Use: Drug Use? No Review of Systems: Constitutional Positive for: recent weight loss. ENT No: ear ache, sore throat. Cardiovascular Positive for: chest pain, palpitations. No: edema. Respiratory Positive for: shortness of air, non-productive. GI Positive for: GERD. No: abdominal pain, constipation, diarrhea, hematochezia, melena, vomitting. (male) No: frequency. Neurological Positive for: light headed. No: seizure, syncope. Musculoskeletal No: joint pain. Physical Exam: Vital signs: 1ST Vital Signs Result Date Time Pulse Ox 93 03/22 2158 B/P 153/99 03/22 2158 Temp 98.7 03/22 2158 Pulse 94 03/22 2158 Resp 18 03/22 2158 O2 Delivery ROOM AIR 03/22 2352 Exam: General appearance: alert, no acute distress, appears not to feel well Eyes: anicteric ENT: mucous membranes moist Neck: full range of motion Cardiovascular: regular rate & rhythm Respiratory: clear to auscultation Lab data: Labs: Laboratory Tests 03/23/17 0610: Creatine Kinase 67, CK-MB (CK-2) Rel Index 2.8, CK and CKMB Interp 1.9, Troponin I 0.26 H 03/23/17 0300: Creatine Kinase 63, CK-MB (CK-2) Rel Index 2.4, CK and CKMB Interp 1.5, Troponin I 0.23 H 03/22/17 2228: Amylase 29, Lipase 86 03/22/17 2228: Sodium 138, Potassium 3.2 L, Chloride 104, Carbon Dioxide 28, BUN 12, Creatinine 1.2, Estimated Creat Clear 69, Estimated GFR (MDRD) 59, Glucose 133 H, Calcium 7.0 L, Total Bilirubin 0.7, AST 15, ALT 20, Alkaline Phosphatase 80, Creatine Kinase 73, CK-MB (CK-2) Rel Index 1.9, CK and CKMB Interp 1.4, Troponin I 0.15 H, Total Protein 7.1, Albumin 3.4, Globulin 3.7 H, Albumin/Globulin Ratio 0.9 L, WBC 7.3, RBC 4.63, Hgb 14.7, Hct 44.4, MCV 96.0, RDW 13.4, Plt Count 180, MPV 6.2 L, Gran % 65.9, Gran # 4.8, Lymphocytes % 26.0, Monocytes % 6.5, Eosinophils % 1.0, Basophils % 0.6, Lymphocytes # 1.9, Monocytes # 0.5, Eosinophils # 0.1, Basophils # 0.0, PUBS MCHC 33.1, MCH 31.8 H Radiology results: Results: CXR 05/22/17 IMPRESSION: No discrete, no definitive pneumonia evident. Mild accentuation of markings at right lower chest is similar to previous studies Only noting some minor thickening along major fissure today, may reflect scant fluid or linear atelectasis, along course of the major fissure on right. No pleural fluid otherwise Diagnosis(es): 1. Benign essential hypertension Status: Chronic 2. Chest pain 3. History of ASCVD 4. Diabetes type 2, controlled Plan: patient has been seen by cardiology and will have a heart catheterization this AM at 0915
[2017-03-23] MEDS ORDERED: IMDUR 30MG. TAB30 MG PO (10:37)
--- NOTE | 2017-03-23 13:03 | RADIOLOGY REPORT PS360 ---
CARDIAC CATHETERIZATION DATE OF CATHETERIZATION:03/23/2017 11:27 AM PROCEDURES: 1. Left heart catheterization 2. Left ventriculogram 3. Selective coronary angiogram 4. Intravascular ultrasound to the left main and left anterior ascending artery INDICATION FOR TEST: 1. Acute coronary syndrome/acute non-ST elevation myocardial infarction 2. Coronary artery disease 3. Inability to provide orthogonal views on the ostial LAD Informed consent was obtained prior to the procedure. COMPLICATIONS: None ESTIMATED BLOOD LOSS: Less than 10 ml. TECHNIQUE: One percent lidocaine used to anesthetize the right anterior aspect of the wrist. The right radial artery was accessed via the Seldinger technique. A 6 Sami sheath was placed in the right radial artery. 2.5 mg of verapamil, 800 mcg of nitroglycerin and 5000 U Heparin were given through the arterial sheath. The Saumya catheter was also used to perform left heart catheterization left ventriculogram and selective coronary angiogram. At the end of the diagnostic angiogram and additional 4000 units of heparin was administered intravenously. Over the wire the Saumya catheter was removed and the [employer] left guide catheter was advanced into the left main artery. A BMW wire was used to traverse the stenosis in the LAD and in intravascular ultrasound probe was advanced into the mid LAD. There was significant difficulty trying to get the intravascular ultrasound probe to even traverse the ostial LAD. Upon pullback the ostial LAD measured 4 sq mm. Given this met significance for the ostial LAD the apparatus was removed the sheath was removed good hemostasis was achieved using TR band in patient transferred to the postop holding area in stable condition area the closing ACT was 332 seconds ANGIOGRAPHIC RESULTS: 1. The left main artery has a distal eccentric calcified stenosis which is encroaching upon the LAD producing a 30-40% stenosis 2. The left anterior descending artery the ostial LAD has a calcified eccentric stenosis in which orthogonal views cannot be obtained. Angiographically this was at least moderate possibly severe. The remaining vessel has 30% nonflow limiting stenoses 3. The circumflex artery is a nondominant vessel and has a 50% and 80% stenosis in the terminal obtuse marginal artery supplying a small to medium amount of myocardium 4. The right coronary artery is a dominant vessel and has stents in the proximal segment which are widely patent free of in-stent restenosis. Immediately adjacent to the RV marginal branch there is a concentric 40-50% stenosis followed by additional 40% and 60% mid vessel mostly eccentric stenoses. Distally the posterior descending artery has a proximal eccentric 30-40% stenosis. 5. The PLASENCIA ventriculogram reveals normal ejection fraction estimated 65% 6. The left ventricular end-diastolic pressure mildly elevated 20 mmHg IMPRESSION: 1. Angiographically moderate distal eccentric left main disease with severe disease encroaching upon the ostium of the LAD 2. Severe stenosis in the nondominant circumflex artery 3. Moderate to severe stenosis in the dominant right coronary artery as described above 4. Normal ejection fraction 5. Normal left ventricular end-diastolic pressure 6. Severe ostial stenosis by either as criteria involving the ostial LAD PLAN: 1. Patient requires three-vessel bypass surgery. The LAD is not amenable to stenting due to the significant mismatch between the ostial LAD extending into the left main artery. 2. I would recommend transferring patient to [facility] for bypass surgery 3. Avoidance of tobacco products 4. LDL less than 70
[2017-03-23] MEDS ORDERED: ALBUTEROL S5 MG/1 ML IH (13:21)
--- NOTE | 2017-03-23 14:58 | RADIOLOGY REPORT PS360 ---
PROCEDURE: 2-D M-mode and color Doppler study INDICATIONS FOR THE TEST: Chest pain COPD+ Heart Murmur Tobacco Smoking+ Palpitations Fatigue Syncope Edema Hypertension+Diabetes Mellitus Rheumatic Fever SOB+HERNANDEZ Obesity Hyperlipidemia+ Family History HD Additional History STENTS, ALCOHOL DAILY,NON-STEMI PATIENT INFORMATION HEIGHT: 71 WEIGHT:197 GENDER: Male B/P:105/68 2-D/M-MODE INTERPRETATION: 2-D MEASUREMENTS OBSERVED VALUES IN CMS Right Ventricular Dimension (RVDd) 3.2 Interventricular Septum (Thickness)(IVsd) 2.0 Left Ventricular Internal Dimensions(LVIDd) 4.2 Left Ventricular Posterior Wall (Thickness)(LVPWd) 1.3 Aortic Root 3.4 Aortic Cusp Separation 2.2 Left Atrial Dimensions (LAD) 3.7 2D 1. Left atrium is mildly enlarged, left ventricle is normal size, visually estimated ejection fraction 55% with no obvious regional wall motion abnormality, endocardial surfaces are poorly visualized. 2. The right atrium is normal size, right ventricle is moderately enlarged with moderate reduced contractility. 3. The aortic valve is minimally thickened and calcified. The mitral valve has mitral calcification. 4. The tricuspid and pulmonic valve are not well visualized. 5. No significant pericardial effusion noted. DOPPLER INTERROGATION: Doppler interrogation of the aortic mitral and tricuspid valvular presence of mild mitral and tricuspid regurgitation, tricuspid and enteric velocity insufficient for calculation of the right ventricular systolic pressure, diastolic parameters are inconclusive CONCLUSION: 1. Normal left ventricular size, preserved left ventricular systolic function, visually estimated ejection fraction 55%, with no obvious regional wall motion abnormality, endocardial surfaces are somewhat poorly visualized. 2. Moderately enlarged right ventricle with moderate reduced contractility. 3. No significant pericardial effusion noted.
[2017-03-23 17:08] VITALS: BP 137/80
[2017-03-23 17:27] VITALS: BP 105/57
--- NOTE | 2017-03-26 12:47 | DISCHARGE SUMMARY STANDARD ---
Discharge Summary (FCA2) Date of admission: 03/23/17 Date of discharge: 03/23/17 Problem List: 1. Coronary artery disease 2. Benign essential hypertension 3. Chest pain 4. History of ASCVD 5. Diabetes type 2, controlled History of present illness: 72-year-old white male with known coronary disease, previous coronary stenting about 13 years ago, diabetes mellitus insulin requiring, hypertension and hyperlipidemia was admitted for substernal chest discomfort that was noted upon waking yesterday morning. Symptoms progressed to include discomfort into the LEFT shoulder and LEFT arm described as an aching sensation. Symptoms would get worse with movement or activity and improved with rest. The pain was associated with SOB, nausea, diaphoresis, and skipped beats. Thus he presented to the ER. IN the ER he was given nitroglycerin and morphine with improvement in symptoms. Cardiac troponins returned elevated 3. Cardiology was consulted for evaluation and recommendations. Electrocardiogram showed sinus rhythm without acute ST elevation. Exam on admission: General appearance: alert, no acute distress, appears not to feel well Eyes: anicteric ENT: mucous membranes moist Neck: full range of motion Cardiovascular: regular rate & rhythm Respiratory: clear to auscultation Hospital Course: The patient was seen by cardiology and had a heart cath. He needed three-vessel bypass surgery because the LAD was not amendable to stenting. He was transferred to . Discharge medications: Stop taking the following medications: CLOPIDOGREL BISULFATE (Clopidogrel 75MG) 75 MG TABLET ORAL DAILY Qty = 30 Continue taking these medications: ATORVASTATIN CALCIUM (ATORVASTATIN 20MG) 20 MG TABLET 20 MILLIGRAM ORAL AT BEDTIME NIGHTLY Amlodipine Besylate/Benazepr (Lotrel 10 Mg-20 Mg) 1 CAP CAP 1 CAPSULE ORAL AT BEDTIME NIGHTLY Omeprazole (Omeprazole 40MG) 40 MG CAPSULE. 40 MILLIGRAM ORAL DAILY ASPIRIN ENTERIC COATED (Aspirin EC) 81 MG TABLET. 81 MILLIGRAM ORAL DAILY Carvedilol (Carvedilol 12.5MG) 12.5 MG TABLET 12.5 MILLIGRAM ORAL TWICE A DAY Qty = 60 Furosemide (Lasix 20MG) 20 MG TABLET 20 MILLIGRAM ORAL DAILY MOMETASONE/FORMOTEROL (Dulera 100 Mcg/5 Mcg Inhaler) 13 GM HFA.AER.AD 2 PUFFS INHALATION TWICE A DAY Insulin Glargine,Hum.rec.anlog (Basaglar Kwikpen U-100) 100 UNIT/1 ML INSULN.PEN 12 SUB-Q AT BEDTIME NIGHTLY Topiramate (Topamax) 50 MG TABLET 50 MILLIGRAM ORAL TWICE A DAY ONDANSETRON HCL (Zofran 4MG Tab) 4 MG TABLET 4 MILLIGRAM ORAL EVERY 6 HOURS NEEDED as needed for NAUSEA AND VOMITING Qty = 20 Glimepiride (Glimepiride 4MG Tablet) 4 MG TABLET 4 MILLIGRAM ORAL DAILY Qty = 90 ISOSORBIDE MONONITRATE (IMDUR 30MG) 30 MG TAB 90 MILLIGRAM ORAL DAILY Albuterol Sulfate (Albuterol Sulfate) 5 MG/1 ML SOLUTION 2.5 MILLIGRAM INHALATION EVERY 6 HOURS Disposition: Activity: Cont Current activity Diet: Continue same diet Discharge to: ACUTE FACILITY TRANSFER Specify acute transfer facility: [facility] at 124
== END 2017-03-23 18:42 | disposition short-term general hospital (02) ==
LOC: ER 21:57 → 2ND 23:51 → ER 23:51 → 2ND 03-23 00:23
PROVIDERS: Emergency Medicine; Internal Medicine
PROC: B2111ZZ Fluoroscopy of Multiple Coronary Arteries using Low Osmolar Contrast (ICD-10-PCS; 2017-03-23)
PROC: B2151ZZ Fluoroscopy of Left Heart using Low Osmolar Contrast (ICD-10-PCS; 2017-03-23)
PROC: B241ZZ3 Ultrasonography of Multiple Coronary Arteries, Intravascular (ICD-10-PCS; 2017-03-23)
PROC: 4A023N7 Measurement of Cardiac Sampling and Pressure, Left Heart, Percutaneous Approach (ICD-10-PCS; principal; 2017-03-23 08:30)
DX: R07.9 Chest pain, unspecified (principal); I21.4 Non-ST elevation (NSTEMI) myocardial infarction; I25.10 Atherosclerotic heart disease of native coronary artery without angina pectoris; Z72.0 Tobacco use; I10 Essential (primary) hypertension; E11.9 Type 2 diabetes mellitus without complications
CPT/HCPCS: C1725; C1760; C1769; G0378; J1644; J2405; Q9967

== ENCOUNTER 2017-07-24 22:37 | Emergency (ER) | payer BC, MEDICARE ==
[~2017-07-24] VITALS: Ht 180.3 cm; Wt 90.7 kg
[~2017-07-24 22:37] MED LIST changes: +ACETAMINOPHEN-H1 TA2 PO; +ALBUTEROL S5 MG/1 ML IH; +ASPIRIN EC325 M1 PO; +COLACE100 MG PO; +COREG 12.5 MG12.5 MG PO; +GLIMEPIRIDE 4MG4 MG PO; +IMDUR 30MG. TAB30 MG PO; -LASIX 20MG. TAB20 MG PO; +LASIX 40MG. TAB40 MG PO; +LISINOPRIL10 MG PO; +METFORMIN 500M500 M1 PO; +METOPROLOL 25 M25 MG PO; +PLAVIX75 M1 PO; +TOPIRAMATE50 M1 PO; +TUMS 400MG TAB400 MG PO; +VITAMIN D400 UNI1 PO
[2017-07-24] MEDS ORDERED: GLIMEPIRIDE 4MG4 MG PO (22:49)
--- NOTE | 2017-07-24 22:49 | Emergency Room Report ---
History of Present Illness Time Seen by [id number] Presenting Problem in Triage Pt arrived:Walked Presenting Problem:PATIENT REPORTS HE WAS WALKING ON HIS PORCH, GOT DIZZY AND FELL. REPORTS HIT HIS HEAD. REPORTS HIS KNEES HURT AND FOREHEAD HURTS. PATIENT REPORTS HE HAS HAD 3 GLASSES OF MIXED WHISKEY TONIGHT. Onset of symptoms date/time:07/24/17 or onset unknown for: Treatment Prior to Arrival: DSG TO [facility] Provided by:LAYPERSON Sepsis Risk Assessment: Temp: 98.0 B/P: 143/83 MAP: 103 Pulse: 76 Resp: 20 Recent fever? N Clinical Suspician of Infection? N Mental Status: 2 - Mildly Altered Sepsis Risk:Low Sepsis Risk Have you (or family members/close friends) recently traveled outside the [place]? N If Yes, where/when: Have you had exposure to infectious disease within the past month? TB? Other? Specify: Comment The patient fell on his porch, stating he got dizzy which caused him to fall. He primarily landed on his face. He broke his glasses and dentures. He has abrasions to his forehead and nose and a small laceration of the forehead. He says he has hit both of his knees. He denies neck pain. Denies loss of consciousness. No chest pain or abdominal pain. He admits to drinking 5 drinks of alcohol since 4 PM, but says "I wasn't shit- faced falling down or anything". Tetanus shot up-to-date ALLERGIES Coded Allergies: No Known Allergies (03/15/17) Home Medications Active Scripts ONDANSETRON HCL (Zofran 4MG Tab) 4 MG PO Q6HP PRN NAUSEA AND VOMITING #20 TAB Prov: 03/17/17 Reported Medications Aspirin (Aspirin Ec) 325 MG PO DAILY ATORVASTATIN CALCIUM (ATORVASTATIN 20MG) 20 MG PO QHS Omeprazole (Omeprazole 40MG) 40 MG PO DAILY MOMETASONE/FORMOTEROL (Dulera 100 Mcg/5 Mcg Inhaler) 2 PUFFS IH BID Insulin Glargine,Hum.rec.anlog (Basaglar Kwikpen U-100) 8 UNIT SQ QHS Lisinopril 10 MG PO DAILY #30 TAB Clopidogrel Bisulfate (Plavix) 75 MG PO DAILY Metformin HCl (Metformin) 500 MG PO QHS Carvedilol (Coreg 12.5Mg) 6.25 MG PO DAILY Glimepiride (Glimepiride 4MG Tablet) 4 MG PO DAILY Furosemide (Furosemide) 20 MG FT DAILY Carvedilol 12.5 MG PO DAILY History Medical History General CAD? Yes Angina: Yes [place]: Yes Hypertension? Yes Hyperlipidemia? Yes CHF? Yes DVT? No PE? No COPD? Yes Asthma? No Anemia? No GERD? Yes Gastric ulcers? No GI Bleed? No Hernia? Yes Thyroid Problems? No Hypothyroidism? No CVA? No Seizures? No Diabetes? Yes Insulin Dependent: Yes Insulin Pump: No Home FSBS? Yes Renal Insuffiency? No End Stage Renal Disease? No UTI? No Stones? No BPH? No GB Disease: No Nephritic Syndrome? No Asplenia? No Hepatitis? No Sickle Cell Disease? No Arthritis? Yes Migraines? No Cataracts? Yes Glaucoma? No MRSA? No HIV? No TB? No Anxiety? No Depression? No Cancer? No More? Yes Additional hx: 1. 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 Immunization Hx DT/Tetanus Unknown Flu 2015-FSN Pneumonia Received In Past Surgical Hx Previous Surgery?Y APPY BUNIONECTOMY HEART STENT BILATERAL CATARACTS VASECTOMY Coronary Artery Bypass Family History Family Hx Diabetes No CAD Yes Hypertension Yes Hyperlipidemia No Cancer Yes TB No Social History Smoking Hx Smoker: Current Every Day Smoker Tobacco: Yes Type Cigarettes Packs/day < 1 Pack Alcohol Alcohol: No Review of Systems All Other Systems Reviewed and Negative Constitutional see HPI Respiratory denies shortness of breath Cardiovascular denies chest pain Gastrointestinal denies abdominal pain, denies vomiting Musculoskeletal denies neck pain Psychiatric/Neurological denies numbness, denies weakness Physical Exam Vital Signs Vital Signs Date Time Temp Pulse Resp B/P Pulse O2 O2 Flow FiO2 Ox Delivery Rate 07/25 0048 98.2 77 22 134/77 91 07/25 0025 98.2 77 22 134/77 91 07/24 2346 77 20 142/76 94 07/24 2240 98.0 76 20 143/83 94 General Appearance no apparent distress Eye Exam - bilateral eye normal exam, bilateral eye PERRL, bilateral eye EOMI Ear, Nose, Throat superficial central forehead abrasion with 2 cm vertical laceration., abrasion over bridge of nose. Nasal septum midline. No epistaxis or septal hematoma. Neck normal inspection, non-tender, supple, full range of motion Respiratory Status Yes: trachea midline, chest symmetrical, non tender chest. No: respiratory distress. Lung Sounds bilateral: normal breath sounds, lungs clear. Cardiovascular normal exam, regular rate/rhythm, no peripheral edema, no gallop, no JVD, no murmur, no rub, normal peripheral pulses Peripheral Pulses Pulses normal Yes Gastrointestinal normal bowel sounds, normal exam, non tender, soft, no organomegaly Extremities superficial abrasions anterior knee bilaterally without edema, ecchymosis, effusion, or deformity. Distal neurovascular status intact. 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 No Results/Orders Laboratory Tests 07/24/17 2315: Sodium 140, Potassium 3.8, Chloride 103, Carbon Dioxide 27, BUN 21 H, Creatinine 1.7 H, Estimated Creat Clear 50, Estimated GFR (MDRD) 40, Glucose 99 , Calcium 8.6, Total Bilirubin 0.2, AST 16, ALT 28, Alkaline Phosphatase 58, Troponin I < 0.02, Total Protein 7.0, Albumin 3.5, Globulin 3.5 H, Albumin/ Globulin Ratio 1.0 L, WBC 6.3, RBC 4.37 L, Hgb 13.3 L, Hct 40.5 L, MCV 92.8, RDW 14.5, Plt Count 190, MPV 7.2 L, Gran % 52.3, Gran # 3.3, Lymphocytes % 40.4 , Monocytes % 5.4, Eosinophils % 1.2, Basophils % 0.6, Lymphocytes # 2.5, Monocytes # 0.3, Eosinophils # 0.1, Basophils # 0.0, PUBS MCHC 32.8, MCH 30.5, Alcohols 208 H Current Medication Orders Sig/Danelle Start time Last Medication Dose Route Stop Time Status Admin Multi-Ingredient 1 UDP ONCE ONE 07/25 100 DCD 07/25 Ointment TP 07/25 101 0052 Multi-Ingredient 0 .STK-MED ONE 07/25 52 DC Ointment TP Acetaminophen 650 MG ONCE ONE 09/16 0045 DC 07/25 PO 07/25 0046 0037 Acetaminophen 0 .STK-MED ONE 07/25 0037 DC PO Sodium Chloride 500 ML .Q1H 07/25 0030 CAN IV Sodium Chloride 500 ML .Q1H 07/25 0030 DCD 07/25 IV 07/25 0129 0024 Sodium Chloride 10 ML PRN PRN 07/25 0030 DCD IV 07/26 0023 Sodium Chloride 500 ML .STK-MED ONE 07/25 0019 DC IV Lidocaine/Epinephrine 0 .STK-MED ONE 07/24 2302 DC .ROUTE Lidocaine/Epinephrine 10 ML ONCE ONE 07/24 2300 DC 07/24 SC 07/24 2301 2310 Sodium Chloride 10 ML PRN PRN 07/24 230 DCD 07/24 IV 07/25 225 2311 Orders Procedure Date/time Status DIET-NOTHING BY MOUTH 07/[address] SINUS (MAX-FACIAL W/O CONT) 07/[address] CERVICAL SPINE W/O CONT. 07/[address] HEAD W/O CONTRAST 07/[address] HEAD REQ 07/[address] SCAN REQ 07/24 2259 Active IV SALINE LOCK 07/24 2259 Active TROPONIN I 07/24 2259 Complete CBC WITH AUTO DIFF 07/24 2259 Complete CHEM 12 PROFILE 07/24 2259 Complete ALCOHOL 07/24 2259 Complete 12 LEAD EKG-BANNERSON (INITIAL) 07/24 2252 Active ELECTROCARDIOGRAM REQUEST 07/24 2252 Active CM/EKG CM/EKG Comments EKG interpreted by Santos Breen MD: Rhythm: sinus Rate: 73 Pinch: normal Ectopy: none Conduction: First-degree AV block ST Segment Changes: none T Wave Changes: none Q Waves: V1 and V2 No evidence of acute ischemia or injury Baseline artifact and wander present, but I consider the EKG adequate for accurate interpretation. XRAY/CT/US XRAY/CT/US CT head, C-spine, facial Comment CT scan interpreted by ad radiologist. Faxed report received and reviewed: Head: Negative Cervical spine: Degenerative disc disease, no fracture Maxillofacial: No fracture Progress - The patient refused x-rays of his knees, states they are only skinned. Procedures Laceration/Wound Repair Progress Laceration Repair Performed by: SANTOS BREEN Consent: Verbal consent obtained. Risks and benefits: risks, benefits and alternatives were discussed Consent given by: patient Patient identity confirmed: verbally with patient Laceration location: Forehead Laceration length: 2 cm Local anesthetic: 1 percent lidocaine with epinephrine Wound prep: Sterilly scrubbed with Hibiclens and irrigated with copious normal saline. Draping: Sterile in usual manner Patient sedated: no Debridement: None Exploration: No deep structure injury or foreign body Layers Closed: Skin Suture material, skin: 6-0 Prolene Number of sutures: 4 Patient tolerance: Patient tolerated the procedure well with no immediate complications Departure Departure Disposition DC Home or Self Care(routine) Clinical Impression Primary Impression: Facial laceration Qualifiers: Encounter type: initial encounter Qualified Code: S01.81XA - Laceration without foreign body of other part of head, initial encounter Secondary Impressions: Abrasion of face and extremities Qualifiers: Encounter type: initial encounter Laterality: right Qualified Code: S00.81XA - Abrasion of other part of head, initial encounter Alcohol intoxication Qualifiers: Complication of substance-induced condition: uncomplicated Qualified Code: F10.920 - Alcohol use, unspecified with intoxication, uncomplicated Renal insufficiency Condition STABLE Patient Instructions DI for Closed Head Injury, DI for Laceration Repair Additional Instructions Additional instructions for FACIAL LACERATION: Clean the wound daily with soap and water. You may shower. Apply a thin film of antibiotic ointment such as neosporin or triple antibiotic after showering. Avoid submerging the wound, no swimming. See your primary care physician or return to the Urgent [facility] Center in 5 days for suture removal. Return if any signs of infection including increasing pain, pus drainage, swelling, redness, red streaks, or fever. Additional instructions for HEAD INJURY: See your physician as soon as possible for further evaluation. Return immediately if severe headache, vomiting, problems with vision or speech, numbness or weakness of the extremities, or severe neck pain. ED Critical Care Critical Care No at 0153
[2017-07-24] MEDS ORDERED: FUROSEMIDE 20MG20 MG FT (22:50)
[2017-07-24] MEDS ORDERED: CARVEDILOL12.5 MG PO (22:52)
[2017-07-24 23:37] LABS: LYMPH # 2.5 K/mm3 (0.7-4.5); LYMPH % 40.4 % (10-50)
[2017-07-24 23:50] LABS: HEMOGLOBIN 13.3 g/dL (14.1-18.0)
[2017-07-25 00:03] LABS: BUN 21 mg/dL (7-18)
[2017-07-25 00:06] LABS: GFR (ESTIMATED) 40 ML/MIN (>60)
[2017-07-25 00:48] VITALS: BP 134/77
--- NOTE | 2017-07-25 09:52 | RADIOLOGY REPORT PS360 ---
CT HEAD W/O CONTRAST COMPARISON: CT scan of the brain noncontrast 06/11/2017 HISTORY: Patient fell, contusions to face and nose TECHNIQUE: Multiaxial scans obtained from base skull to the vertex and were performed without IV contrast. FINDINGS: The base of skull appears normal, the mastoids are clear. There is mild deviation nasal septum to the right with a prominent nasal septal spur projecting to the right. The ventricular system is normal. There is no bleed and is no definite ischemic infarct noted. There are no extra-axial fluid collections. The sylvian fissures and cortical sulci are mildly prominent. The bony calvarium appears intact. There is no definite scalp hematoma. IMPRESSION: Findings of age-appropriate cortical atrophy, no acute intracranial pathology noted, agree the [facility] report
--- NOTE | 2017-07-25 12:19 | RADIOLOGY REPORT PS360 ---
CT CERVICAL SPINE W/O CONT COMPARISON: CT scan cervical spine 12/27/2011 HISTORY: Neck pain after a fall TECHNIQUE: Multiple axial scans of the cervical spine were obtained. Sagittal coronal reformats were evaluated as well. FINDINGS: There is straightening of normal curvature. C1-C7 appear intact. There is minor 2 mm anterolisthesis of C3-4 and C5 and this was noted previously. This prominent anterior ossific spurring at the C5-6 and C6-7 levels with prominent disc space narrowing at C6-7. There is minor posterior osteophytic spurring at C6-7 as well. There are multilevel arthritic changes of the apophyseal joints primarily see 3 through C6. The prevertebral soft tissues are normal and the odontoid is normal other than showing arthritic changes. IMPRESSION: Possible mild muscle spasm, stable mild anterolisthesis of C4 and C5 and multilevel degenerative changes as noted but most prominent at the C5-6 and C6-7 levels
--- NOTE | 2017-07-25 12:23 | RADIOLOGY REPORT PS360 ---
CT SINUS (MAX-FACIAL W/O CONT) COMPARISON: None HISTORY: Facial contusions erosions for head and nose after a fall TECHNIQUE: Multiple axial scans of the maxillofacial bones and paranasal sinuses were obtained. Sagittal coronal reformats were evaluated as well. FINDINGS: The mandible appears intact. The remainder of the joints appear normal bilaterally. There is mild bowing of the nasal septum to the right with a prominent nasal septal spur projecting to the right. There is mild mucoperiosteal thickening of the left maxillary sinus. There is a shilo bullosa of the left middle turbinate. Ethmoid sinuses falls and sphenoid sinus appear clear. The nasal bone is intact. The orbital rims and orbital floors appear intact and the zygomatic arches are normal. IMPRESSION: No acute facial bone fracture noted, mild chronic inflammatory changes of left maxillary sinus as noted agree with the [facility] report
== END 2017-07-25 00:59 | disposition home or self-care (01) ==
LOC: ER 22:37
PROVIDERS: Emergency Medicine
PROC: 0HQ1XZZ Repair Face Skin, External Approach (ICD-10-PCS; principal; 2017-07-24)
DX: S01.81XA Laceration without foreign body of other part of head, initial encounter (principal); W10.0XXA Fall (on)(from) escalator, initial encounter; Y92.028 Other place in mobile home as the place of occurrence of the external cause; S00.81XA Abrasion of other part of head, initial encounter; F10.120 Alcohol abuse with intoxication, uncomplicated; Y90.7 Blood alcohol level of 200-239 mg/100 ml; N28.9 Disorder of kidney and ureter, unspecified; F17.210 Nicotine dependence, cigarettes, uncomplicated; Z95.1 Presence of aortocoronary bypass graft; Z79.4 Long term (current) use of insulin; E11.9 Type 2 diabetes mellitus without complications; J44.9 Chronic obstructive pulmonary disease, unspecified; I11.0 Hypertensive heart disease with heart failure; I50.9 Heart failure, unspecified; I25.2 Old myocardial infarction; I25.10 Atherosclerotic heart disease of native coronary artery without angina pectoris; E78.5 Hyperlipidemia, unspecified; Z79.02 Long term (current) use of antithrombotics/antiplatelets; Z79.82 Long term (current) use of aspirin; Z79.899 Other long term (current) drug therapy

== ENCOUNTER → 2017-08-27 | Outpatient (CLI) | payer BC, MEDICARE ==
[~2017-08-27] MED LIST changes: +CARVEDILOL12.5 MG PO; +FUROSEMIDE 20MG20 MG FT
== END ==
LOC: SL 20:08
DX: I10 Essential (primary) hypertension (principal); G47.10 Hypersomnia, unspecified; I25.10 Atherosclerotic heart disease of native coronary artery without angina pectoris

== ENCOUNTER → 2017-09-01 | Outpatient (CLI) | payer BC, MEDICARE ==
[2017-09-01 13:19] LABS: BILIRUBIN, INDIRECT 0.39 mg/dL (0-0.9)
== END ==
LOC: LAB 11:12
PROVIDERS: Internal Medicine
DX: I25.10 Atherosclerotic heart disease of native coronary artery without angina pectoris (principal); I10 Essential (primary) hypertension; I73.9 Peripheral vascular disease, unspecified; I44.0 Atrioventricular block, first degree; E78.5 Hyperlipidemia, unspecified; R06.00 Dyspnea, unspecified; Z95.1 Presence of aortocoronary bypass graft